=== PATIENT | female | born 1955 | race Caucasian/White ===

== ENCOUNTER 2021-10-15 08:37 | Emergency (ER) | payer BC, OTHER ==
[~2021-10-15] VITALS: Ht 165.1 cm; Wt 70.3 kg
[~2021-10-15 08:37] MED LIST: AMLO-489 PO; BENA10TA84 PO; NAPR-223 PO
[2021-10-15] MEDS ORDERED: METOPROLOL TARTRATE 50 MG TAB PO ONE (09:30)
[2021-10-15] MEDS ORDERED: PRED20TA2 PO (10:16)
[2021-10-15] MEDS ORDERED: ACYC-163 PO (10:16)
[2021-10-15] MEDS ORDERED: PROPDRO5 OP (10:16)
[2021-10-15 10:29] VITALS: BP 180/98
== END 2021-10-15 10:42 | disposition home or self-care (01) ==
LOC: ER 08:37
DX: G51.0 Bell's palsy (principal); I10 Essential (primary) hypertension; E78.5 Hyperlipidemia, unspecified; Z79.899 Other long term (current) drug therapy
CPT/HCPCS: 93005

== ENCOUNTER 2024-07-17 19:23 | Inpatient (IN) | payer BC, OTHER ==
[~2024-07-17] VITALS: Ht 165.1 cm; Wt 83.2 kg
[~2024-07-17 19:23] MED LIST changes: +ACYC1TAB2 PO; -AMLO-489 PO; +AMLO1TAB22 PO; +PRED20TA2 PO; +PROPDRO5 OP
[2024-07-17] MEDS: ACETAMINOPHEN 325 MG TAB PO ONE (20:35)
[2024-07-17 20:56] LABS: Basophils # (auto) 0 10 ^3/uL (0-0.2); Basophils % (auto) 0.4 % (0.0-2.0); Eosinophils # (auto) 0 10 ^3/uL (0-0.8); Hematocrit 46.3 % (36.0-46.0); Lymphocytes # (auto) 1.1 10 ^3/uL (0.4-5.4); Lymphocytes % (auto) 11.7 % (10.0-50.0); Mean Corpuscular Hemoglobin 33.6 pg (28.0-32.0); Mean Corpuscular Hgb Conc. 34.5 g/dL (32.0-36.0); Mean Corpuscular Volume 97.6 fL (80.0-100.0); Monocytes # (auto) 1.2 10 ^3/uL (0-1.3); Neutrophils # (auto) 7.3 10 ^3/uL (1.6-8.6); Neutrophils % (auto) 75.9 % (37.0-80.0); Platelet Count (auto) 287 10^3/uL (140-450); Red Blood Cells 4.74 10^6/uL (4.0-5.20); Red Cell Distribution Width 14.1 % (11.8-14.3); White Blood Cell 9.7 10^3/uL (4.4-10.8)
--- NOTE | 2024-07-17 21:03 | ED.PDOC ---
History of Present Illness HPI Comments 69 y/o F, with a Hx of AFIB, CHF, HLD, HTN, and obesity, is [id number] daughter for c/o confusion, difficulty ambulating, mild headache, and poor appetite s/p mechanical fall and injury, today. Per daughter, patient developed aforementioned symptoms after sustaining a fall w/o head injury or lost of consc iousness after leaving her dentist's office appointment, today, at 1100. Patient was stated to have been given Lidocaine at appointment. She is reported also to have been sick with a headache, cough, congestion, and shortness of breath for the past few days prior to fall in addition to being on Xarelto. Patient has no reported chest pain, shortness of breath, weakens, numbness, tingling sensation, dizziness, vision or speech changes, or other associated symptoms or modifiers at this time. Chief Complaint: Fall Injury Time Seen by MD: 20:40 Primary Care Provider: DR ADAN Reviewed Notes: Nurses Notes, Medications, Allergies Allergies: Coded Allergies: NO KNOWN ALLERGIES (Unverified , 04/25/13) Home Meds Active Scripts Propylene Glycol-Glycerin (Artificial Tears) Tears Etienne, 1 DROP OP Hourly for 7 Days, #1 UNIT Prov:KISHOR DELGADILLO MD 10/15/21 Acyclovir (Acyclovir) 400 Mg Tab, 400 MG PO 5XD for 7 Days, #35 TAB Prov:KISHOR DELGADILLO MD 10/15/21 Prednisone (Prednisone) 20 Mg Tab, 60 MG PO DAILY for 7 Days, #21 TAB Prov:KISHOR DELGADILLO MD 10/15/21 Reported Medications Rivaroxaban (Xarelto Tablet) 15 Mg Tb, 1 TAB PO DAILY 07/18/24 Gabapentin (Gabapentin) 300 Mg Cap, 1 CAP PO TID 07/18/24 Hydrochlorothiazide (Hydrochlorothiazide) 12.5 Mg Cap, 1 CAP PO DAILY 07/18/24 Metoprolol Tartrate (Metoprolol Tartrate) 100 Mg Tab, 1 TAB PO BID 07/18/24 Naproxen (Naprosyn) 500 Mg Tab, 500 MG PO PRN, TAB 04/14/15 Amlodipine Besylate (Amlodipine Besylate) 5 Mg Tab, 5 MG PO DAILY, TAB 04/14/15 Benazepril Hcl (Lotensin) 10 Mg Tab, 10 MG PO DAILY, TAB 04/14/15 Information Source: Relative (Child) Mode of Arrival: Wheelchair Severity: Moderate Timing: Hours Duration: Since onset Prehospital treatment: None Review of Systems: As stated in HPI Vital Signs Vital Signs Date Time Temp Pulse Resp B/P (MAP) Pulse Ox O2 Delivery O2 Flow Rate FiO2 07/18/24 02:00 102 20 127/81 (96) 98 07/17/24 22:36 98.4 98.4 07/17/24 22:31 Nasal Cannula* 2 28 Physical Exam General: Awake, alert and oriented. No acute distress. Skin: Skin in warm, dry and intact. Appropriate color for ethnicity. Nailbeds pi nk with no cyanosis. HEENT: The head is normocephalic and atraumatic. Conjunctivae are clear without exudates or hemorrhage. Sclera is non-icteric. EOM are intact. No signs of nystagmus. Eyelids are normal in appearance without swelling or lesions. Oral m ucosa is pink and moist Neck: The neck is supple with normal range of motion. No JVD. Cardiac: Rapid rate, regular rhythm. No murmurs, gallops, or rubs are auscultated. Respiratory: No signs of respiratory distress. Lung sounds are clear in all lobes bilaterally without rales, ronchi, or wheezes. Abdominal: Abdomen is soft, non-tender without distention. Bowel sounds are pre sent and normoactive in all four quadrants. Extremities: Upper and lower extremities are atraumatic in appearance without deformity or edema. Neurological: The patient is awake, alert and oriented to person, place, and time with normal speech. Speech is clear. There is no facial asymmetry. Psychiatric: Appropriate mood and affect. Good judgement and insight. No visual or auditory hallucinations. Past Medical History PAST MEDICAL HISTORY: AFIB, CHF, High Lipids, HTN Past Medical History (Other): obesity Surgical History: Denies all surgeries BINDERY OPERATOR History: No Pertinent BINDERY OPERATOR History Family History Family History: No family hx of Cancer Social History Smoker: Non-Smoker Alcohol: Denies ETOH Use Drugs: Denies Drug Use Lives In: Home Was a procedure done? Was a procedure done?: No EKG EKG : Pulse Rate (adult): 137 [place]: Normal Cardiac Rhythm: Afib Block: None Hypertrophy: None ST: Normal Differential Dx Considerations may include: encephalopathy, fracture, contusion, bruising, musculoskeletal pain, sprain, viral syndrome X-Ray, Labs, Meds, VS Vital Signs Date Time Temp Pulse Resp B/P (MAP) Pulse Ox O2 Delivery O2 Flow Rate FiO2 07/18/24 02:00 102 20 127/81 (96) 98 07/18/24 00:00 102 07/18/24 00:00 102 19 111/76 (88) 98 07/17/24 22:36 98.4 135 14 125/61 (82) 93 98.4 07/17/24 22:31 92 Nasal Cannula* 2 28 07/17/24 22:18 141 14 91/61 (71) 93 07/17/24 21:11 136 16 110/74 (86) 95 07/17/24 21:03 137 07/17/24 20:35 101.4 07/17/24 20:12 137 07/17/24 20:00 126 07/17/24 19:25 101.4 130 20 90/73 (79) 93 Lab Test 07/17/24 22:49 07/17/24 20:58 07/17/24 20:46 07/17/24 20:33 Range/Units Group A Streptococcus Rapid Negative Influenza Type A Antigen Negative Negative Influenza Type B Antigen Negative Negative SARS-CoV-2 Antigen (Rapid) Negative NEGATIVE Sodium Level 138 136-145 mmol/L Potassium Level 3.5 3.5-5.1 mmol/L Chloride Level 98 98-107 mmol/L Carbon Dioxide Level 28 20-31 mmol/L Anion Gap 12 5-15 Blood Urea Nitrogen 19 9-23 mg/dL Creatinine 1.50 H 0.550-1.02 mg/dL Glomerular Filtration Rate Calc 37 >90 mL/min BUN/Creatinine Ratio 12.7 10.0-20.0 Serum Glucose 155 H 74-106 mg/dL Calcium Level 10.8 H 8.7-10.4 mg/dL Total Bilirubin 0.5 0.2-1.0 mg/dL Aspartate Amino Transferase (AST) 74 H 13-40 U/L Alanine Aminotransferase (ALT) 40 7-40 U/L Alkaline Phosphatase 88 46-116 U/L Total Protein 8.0 5.7-8.2 g/dL Albumin 4.9 H 3.2-4.8 g/dL White Blood Count 9.7 4.4-10.8 10^3/uL Red Blood Count 4.74 4.0-5.20 10^6/uL Hemoglobin 16.0 12.2-16.2 g/dL Hematocrit 46.3 H 36.0-46.0 % Mean Corpuscular Volume 97.6 80.0-100.0 fL Mean Corpuscular Hemoglobin 33.6 H 28.0-32.0 pg Mean Corpuscular Hemoglobin Concent 34.5 32.0-36.0 g/dL Red Cell Distribution Width 14.1 11.8-14.3 % Platelet Count 287 140-450 10^3/uL Mean Platelet Volume 7.4 6.9-10.8 fL Neutrophils (%) (Auto) 75.9 37.0-80.0 % Lymphocytes (%) (Auto) 11.7 10.0-50.0 % Monocytes (%) (Auto) 12.0 0.0-12.0 % Eosinophils (%) (Auto) 0.0 0.0-7.0 % Basophils (%) (Auto) 0.4 0.0-2.0 % Neutrophils # (Auto) 7.3 1.6-8.6 10 ^3/uL Lymphocytes # (Auto) 1.1 0.4-5.4 10 ^3/uL Monocytes # (Auto) 1.2 0-1.3 10 ^3/uL Eosinophils # (Auto) 0 0-0.8 10 ^3/uL Basophils # (Auto) 0 0-0.2 10 ^3/uL Nucleated Red Blood Cells 0.0 % Prothrombin Time 13.3 H 9.3-11.8 sec Prothrombin Time INR 1.28 H 0.9-1.15 Magnesium Level 1.7 1.6-2.6 mg/dL C-Reactive Protein High Sensitivity 0.92 <1.0 mg/dL B-Type Natriuretic Peptide 245.32 0-100 pg/mL Current Medications Medications (Trade) Dose Ordered Sig/Hillary Route Start Time Stop Time Status Last Admin Sodium Chloride 250 ml @ 1,000 mls/hr Q15M ONCE IV 07/17/24 20:30 07/17/24 20:44 DC 07/17/24 22:27 Diltiazem HCl (Cardizem Injection) 15 mg ONCE ONCE IV 07/17/24 20:30 07/17/24 20:31 DC 07/17/24 22:27 Acetaminophen (Tylenol Tablet) 650 mg ONCE ONCE PO 07/17/24 20:30 07/17/24 20:31 DC 07/17/24 20:35 Time of 1ST Reevaluation: 21:10 Reevaluation 1ST: Unchanged Patient Education/Counseling: Other (patient is confused ) Family Education/Counseling: Diagnosis, Treatment Departure 1 Departure Time of Disposition: : Impression: Primary Impression: Acute kidney injury Additional Impressions: Atrial fibrillation with RVR Confusion Disposition: ADMITTED INPATIENT Condition: Stable Comments 69-year-old female with confusion, acute kidney injury, AFib with RVR. Patient admitted for further treatment, evaluation and monitoring. Extensive evaluation was performed in attempt to identify or rule out: (See differential diagnosis section) The following tests were ordered, and results were reviewed by me: (See diagnostic results section) The following test were independently interpreted by me: EKG, chest x-ray (no acute disease) I reviewed and agreed with the following test results read by other providers: N/A I reviewed the following notes from the pt's past medical encounters: (None available at this time) Additional information was gathered from interviewing the following independent historians: Patient's daughter Discussion of management or test interpretation with external physician/other qualified health rn care manager: N/A Addressed one or more chronic illnesses with severe exacerbation, progression, or side effects of treatment: Chronic kidney disease with acute kidney injury, an acute or chronic illness that poses a threat to life or bodily function: AFib with RVR, Decision regarding hospitalization or escalation of hospital level of care: Risk and benefits of admission for further treatment of patient's condition was considered. Due to patient's current clinical condition, high risk of decline and poor outcome if discharged and need for further inpatient management and monitoring, patient will be admitted to the hospital. Drug therapy requiring intensive monitoring for toxicity: IV diltiazem Critical Care Note Critical Care Time?: No Stability Stability form required: No Heart Score Heart Score: Heart Score Response (Comments) Value History N/A 0 EKG N/A 0 Age N/A 0 Risk Factors N/A 0 Troponin N/A 0 Total 0 I personally scribed for MAHENDRA BOWERS MD ([email or web address]) on 07/17/24 at 21:03. Electronically submitted by Saulo Thrasher ([email or web address]). MAHENDRA BOWERS MD Jul 17, 2024 21:03
[2024-07-17 21:10] LABS: INR 1.28 (0.9-1.15); Prothrombin Time 13.3 sec (9.3-11.8)
[2024-07-17 21:15] LABS: Magnesium 1.7 mg/dL (1.6-2.6)
[2024-07-17 21:24] LABS: CRP High Sensitivity 0.92 mg/dL (<1.0)
--- NOTE | 2024-07-17 21:34 | DVH ---
CHEST RADIOGRAPH Indication: suspected sepsis Technique: Single frontal view of the chest was obtained Comparison: None FINDINGS: Lines and Tubes: None Lungs: Clear Pleura: No effusion. No pneumothorax. Cardiomediastinal contours: Unremarkable Bones: Unremarkable IMPRESSION: 1. Clear lungs.
[2024-07-17 21:37] LABS: COVID19 ANTIGEN SOFIA FIA NEGATIVE (NEGATIVE); Rapid Influenza A Negative (Negative); Rapid Influenza B Negative (Negative)
[2024-07-17] MEDS: SODIUM CHLORIDE 0.9% 250 ML IV ONE (22:27)
[2024-07-17] MEDS: dilTIAZem 25 MG/5 ML VIAL IV ONE (22:27)
[2024-07-17 22:31] VITALS: O2SAT 92
[2024-07-17 23:14] LABS: Alanine Aminotransferase 40 U/L (7-40); Alkaline Phosphatase 88 U/L (46-116); Anion Gap 12 (5-15); BUN/Creatinine Ratio 12.7 (10.0-20.0); Bilirubin, Total 0.5 mg/dL (0.2-1.0); Blood Urea Nitrogen 19 mg/dL (9-23); Carbon Dioxide 28 mmol/L (20-31); Chloride 98 mmol/L (98-107); Potassium 3.5 mmol/L (3.5-5.1); Sodium 138 mmol/L (136-145)
[2024-07-17 23:17] LABS: Albumin 4.9 g/dL (3.2-4.8); Aspartate Aminotransferase 74 U/L (13-40); Calcium 10.8 mg/dL (8.7-10.4); Glucose 155 mg/dL (74-106)
[2024-07-17 23:38] LABS: Rapid Strep A Screen-Throat Negative
--- NOTE | 2024-07-18 00:51 | ECG ---
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
--- NOTE | 2024-07-18 03:29 | DVHHPRES ---
History of Present Illness Resident Creating Document: RIMA ANDREW RESIDENT History of Present Illness Ms. Pérez, a 69-year-old female with a history of atrial fibrillation, congestive heart failure, hyperlipidemia, hypertension, sleep apnea and obesity was brought in by her daughter due to confusion, difficulty walking, a mild headache, and poor appetite following a mechanical fall earlier today. The fall occurred after a dentist appointment where she received Lidocaine, but she did not hit her head or lose consciousness. She has also been experiencing a headache, cough, congestion, and shortness of breath for the past few days and is on Xarelto. There are no reports of weakness, numbness, t ingling, dizziness, vision, or speech changes. Cardiovascular: AFIB, CHF, HTN Musculoskeletal: Osteoarthritis Family History: None, Other (Noncontributory.) Smoke: No ALCOHOL: none Drugs: None Lives: with Family Domestic Violence: Neg Review of Systems Constitutional: Yes: Weakness, Malaise; No: Fever, Chills, Sweats, Other Eyes: No: Pain, Vision change, Conjunctivae inflammation, Eyelid inflammation, Other, Redness ENT: No: Ear pain, Ear discharge, Nose pain, Nose discharge, Nose congestion, Mouth pain, Mouth swelling, Throat pain, Throat swelling, Other Respiratory: Cough, Dry; No: Shortness of breath, SOB with excertion, Wheezing, Hemoptysis, Pleuritic Pain, Sputum, Wheezing, Other Cardiovascular: No: Chest Pain, Palpitations, Orthopnea, Paroxysmal Noc. Dyspnea, Edema, Lt Headedness, Other Gastrointestinal: No: Nausea, Vomiting, Abdominal Pain, Diarrhea, Constipation, Melena, Hematochezia, Other Genitourinary: No Dysuria, No Frequency, No Incontinence, No Hematuria, No Retention, No Other Musculoskeletal: No: other, neck pain, shoulder pain, arm pain, back pain, hand pain, leg pain, foot pain Skin: No: Rash, Lesions, Jaundice, Bruising, Other Neurological: Weakness, Incoordination, Confusion, Other (Fall); No: Numbness, Change in speech, Seizures Allergies: Coded Allergies: NO KNOWN ALLERGIES (Unverified , 04/25/13) Exam Vital Signs Vital Signs Date Time Temp Pulse Resp B/P (MAP) Pulse Ox O2 Delivery O2 Flow Rate FiO2 07/18/24 02:00 102 20 127/81 (96) 98 07/17/24 22:36 98.4 98.4 07/17/24 22:31 Nasal Cannula* 2 28 General Appearance: Alert, Oriented X3, Cooperative, No acute distress, mild distress, moderate distress HEENT: Atraumatic, PERRLA, EOMI, Mucous membr. moist/pink Respiratory: Clear to auscultation, Normal air movement Cardiovascular: Regular rate, Normal S1, Normal S2, No murmurs Abdominal: Normal bowel sounds, Soft, No tenderness, No hepatospenomegaly Extremities: No clubbing, No cyanosis, No edema, Normal pulses, No tenderness/swelling Skin: No rashes, No breakdown, No significant lesion Neuro: Normal speech, Strength at 5/5 X4 ext, Normal tone, Sensation intact, Cranial nerves 3-12 NL, Reflexes 2+, Other (Deferred as patient is fall precaution,) Psych/Mental Status: Mental status NL, Mood NL Labs/Xrays Labs Test 07/17/24 22:49 07/17/24 20:58 07/17/24 20:46 07/17/24 20:33 Range/Units Group A Streptococcus Rapid Negative Influenza Type A Antigen Negative Negative Influenza Type B Antigen Negative Negative SARS-CoV-2 Antigen (Rapid) Negative NEGATIVE Sodium Level 138 136-145 mmol/L Potassium Level 3.5 3.5-5.1 mmol/L Chloride Level 98 98-107 mmol/L Carbon Dioxide Level 28 20-31 mmol/L Anion Gap 12 5-15 Blood Urea Nitrogen 19 9-23 mg/dL Creatinine 1.50 H 0.550-1.02 mg/dL Glomerular Filtration Rate Calc 37 >90 mL/min BUN/Creatinine Ratio 12.7 10.0-20.0 Serum Glucose 155 H 74-106 mg/dL Calcium Level 10.8 H 8.7-10.4 mg/dL Total Bilirubin 0.5 0.2-1.0 mg/dL Aspartate Amino Transferase (AST) 74 H 13-40 U/L Alanine Aminotransferase (ALT) 40 7-40 U/L Alkaline Phosphatase 88 46-116 U/L Total Protein 8.0 5.7-8.2 g/dL Albumin 4.9 H 3.2-4.8 g/dL White Blood Count 9.7 4.4-10.8 10^3/uL Red Blood Count 4.74 4.0-5.20 10^6/uL Hemoglobin 16.0 12.2-16.2 g/dL Hematocrit 46.3 H 36.0-46.0 % Mean Corpuscular Volume 97.6 80.0-100.0 fL Mean Corpuscular Hemoglobin 33.6 H 28.0-32.0 pg Mean Corpuscular Hemoglobin Concent 34.5 32.0-36.0 g/dL Red Cell Distribution Width 14.1 11.8-14.3 % Platelet Count 287 140-450 10^3/uL Mean Platelet Volume 7.4 6.9-10.8 fL Neutrophils (%) (Auto) 75.9 37.0-80.0 % Lymphocytes (%) (Auto) 11.7 10.0-50.0 % Monocytes (%) (Auto) 12.0 0.0-12.0 % Eosinophils (%) (Auto) 0.0 0.0-7.0 % Basophils (%) (Auto) 0.4 0.0-2.0 % Neutrophils # (Auto) 7.3 1.6-8.6 10 ^3/uL Lymphocytes # (Auto) 1.1 0.4-5.4 10 ^3/uL Monocytes # (Auto) 1.2 0-1.3 10 ^3/uL Eosinophils # (Auto) 0 0-0.8 10 ^3/uL Basophils # (Auto) 0 0-0.2 10 ^3/uL Nucleated Red Blood Cells 0.0 % Prothrombin Time 13.3 H 9.3-11.8 sec Prothrombin Time INR 1.28 H 0.9-1.15 Magnesium Level 1.7 1.6-2.6 mg/dL C-Reactive Protein High Sensitivity 0.92 <1.0 mg/dL B-Type Natriuretic Peptide 245.32 0-100 pg/mL [address] [address] Ph: [phone] DIAGNOSTIC IMAGING Diagnostic Imaging Report : [id number] Signed PATIENT: KATARZYNA PÉREZ ACCT: [id number] UNIT: [id number] : 1955 LOC: [facility] ROOM / BED: [address] [place] [address] AGE / SEX: 69 / F ADM STATUS: ADM IN SERVICE 0336 ORDERING PHYSICIAN: RIMA ANDREW RESIDENT PROCEDURE(s): HWOCT - HEAD WITHOUT CONTRAST REASON: rule out stroke ORDER NUMBER(s): [id number], ACCESSION NUMBER(s): [id number] EXAM: CT HEAD WITHOUT CONTRAST INDICATION: rule out stroke TECHNIQUE: CT of the head without intravenous contrast. Radiation Dose : 1. Head: CT Dose: CTDI volume is 58 mGy. Dose-length product is 1027 mGy*cm The dose indicators for CT are the volume Computed Tomography (CT) Dose Index (CTDIvol) and the Dose Length Product (DLP), and are measured in units of mGy and mGy-cm, respectively. These indicators are not patient dose, but values generated from the CT scanner acquisition factors. The report includes radiation exposure data for exposures received during this examination. COMPARISON: None FINDINGS: There is no evidence of acute intracranial hemorrhage, extra-axial collection, mass effect, midline shift, herniation or hydrocephalus. The ventricles, sulci and cisterns are age appropriate. The wells-white differentiation is intact. Patchy periventricular and subcortical white matter hypoattenuation is nonspecific but may be related to small vessel ischemic disease. This is most prominent in the right frontal lobe. The visualized paranasal sinuses and mastoid air cells are clear. The surrounding soft tissues and osseous structures are unremarkable. IMPRESSION: No acute intracranial abnormality. MRI can be obtained to further evaluate if there is high clinical suspicion for infarct. Radiation optimization: All CT scans at this facility use at least one of these dose optimization techniques: automated exposure control mA and/or kV adjustment per patient size (includes targeted exams where dose is matched to clinical indication) or iterative reconstruction. ATED BY: STAR SIMPSON MD DICTATED DATE/TIME: 07/18/24436 SIGNED BY: STAR SIMPSON MD SIGNED DATE/TIME: 07/18/24436 CC: [place] [id number] Ph: [phone] DIAGNOSTIC IMAGING Diagnostic Imaging Report : [id number] Signed PATIENT: KATARZYNA PÉREZ ACCT: [id number] UNIT: [id number] : 1955 LOC: ER ROOM / BED: / AGE / SEX: 69 / F ADM STATUS: REG ER SERVICE 15 ORDERING PHYSICIAN: MAHENDRA BOWERS MD PROCEDURE(s): CXR1 - CHEST XRAY 1 VIEW REASON: suspected sepsis ORDER NUMBER(s): [id number], ACCESSION NUMBER(s): [id number] CHEST RADIOGRAPH Indication: suspected sepsis Technique: Single frontal view of the chest was obtained Comparison: None FINDINGS: Lines and Tubes: None Lungs: Clear Pleura: No effusion. No pneumothorax. Cardiomediastinal contours: Unremarkable Bones: Unremarkable IMPRESSION: 1. Clear lungs. ATED BY: RHONA CHRISTIANSEN DO DICTATED DATE/TIME: 07/17/242131 SIGNED BY: RHONA CHRISTIANSEN DO SIGNED DATE/TIME: 07/17/242131 CC: EKG Name: KATARZYNA PÉREZ Acct: [id number] [place] [address] ELECTROCARDIOGRAM REPORT PATIENT: KATARZYNA PÉREZ ACCT: [id number] : 1955 LOC: ER ROOM / BED: / AGE / SEX: 69 / F ADM STATUS: REG ER SERVICE 24 UNIT: [id number] ORDERING PHYSICIAN: MAHENDRA BOWERS MD PROCEDURE(s): EKG - ELECTROCARDIGRAM ORDER NUMBER(s): [id number], ACCESSION NUMBER(s): [id number] [facility] Test Date: 2024-07-17 Test Time: 20:12:21 Pat Name: KATARZYNA PÉREZ Department: ER 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 DICTATED BY: DICTATED DATE/TIME:07/17/242011 ELECTRONICALLY SIGNED BY: ELECTRONICALLY CO-SIGNED BY: Assessment/Plan Assessment/Plan Assessments: a 69-year-old with multiple health issues, was brought in for confusion and difficulty walking after a fall today, following a dentist appointment where she received Lidocaine. Plan: #1 Possible syncope: History is not clear it could be due to syncope, pain and lidocaine could be pointing towards vasovagal, but to rule out cardiac /more serious causes of syncope echo, UDS, orthostatic vitals and further labs to follow. No ST-T acute changes noted. BNP in 200s, troponin trending in process. #2 acute Confusion: Broad differentials including concussion injury, stroke/TIA, metabolic/toxic encephalopathy among others. CBC and chemistry unremarkable. BG WNL, UDS unremarkable, plasma serum alcohol WNL. #3 Acute kidney injury likely due to VMN: Baseline creatinine around 1.06, elevated with 1.50 likely due to prerenal causes. IV fluid to continue. Elevated CK 322. CK to follow. Avoid nephrotoxics. check I&O closely. #4 Known Atrial fibrillation with RVR: Noted at 12 lead EKG, telemetry with heart rate in the 130s AFib RVR in known patient. At home patient takes metoprolol tartrate 100 mg b.i.d., Xarelto 15 mg daily. status post IV Cardizem, metoprolol succinate 50 mg b.i.d. for event coverage and restarted patient's home Xarelto. No noncompliance noted. target heart rate below 110 at moderate exercise and below 80 at rest as per RACE II trial. keep magnesium above 2, potassium above 4. Magnesium. #5 acute stroke /TIA to rule out: Noncontrast head CT unremarkable. No focal neurological deficits noted, Carotid duplex Doppler, echo pending. If high suspicion of neurological cause suspected consider MRI tomorrow. #6 Possible mechanical fall: The fall could be due to mechanical / strength related issues PT evaluation in the a.m.. Fall precautions In place. B12 WNL, no cerebral/cerebellar incoordination noted. #7 Possible hyperthyroidism: TSH 0.36, follow up free T3-T4. Treat as needed. #8 UTI: Leukocyte esterase 3+, malaise, turbid urine, urine culture blood culture to follow started the patient on IV ceftriaxone. #9 community-acquired pneumonia Gram-positive/Gram-negative: Along with viral influenza, COVID, strep pneumonia ruled out, CXR unremarkable patient's recent cough could be due to viral URI. Speech pathology eval by nursing staff to rule out any dysphagia. #10 Sleep apnea: Known sleep apnea CPAP / BiPAP at night during sleep time. RT input appreciated. #11 Grade 1 obesity: BMI 30.8 weight loss, lifestyle modification recommended. #12 Known essential hypertension: Home patient takes amlodipine 5 mg, hydro chlorothiazide 12.5 daily. Blood pressure WNL, target blood pressure 140/90 or below. At this time holding antihypertensives. 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 #14 Chronic Congestive heart failure: Systolic versus diastolic versus mixed. TTE pending. IV 20 Lasix mildly elevated BNP. #15 Osteoarthritis/back pain: Gabapentin 300 mg p.o. t.i.d. holding given recent confusion, naproxen 500 mg p.r.n., as needed pain medication with Tylenol. #16: Diet: When speech evaluation clear patient can be started on cardiac diet with 2 g salt restriction. PUD prophylaxis: protonix 40mg Daily. DVT prophylaxis: Patient on Xarelto 15 mg daily restarted. Barriers to discharge: Medical diagnosis and management in progress. Patient lives with family. Independent for ADL at baseline with patient family help. PT consulted, as needed sw help. PCP: DR ADAN Case discussed with Dr. Thurman. Code Status: Full Code. Discussion needed total 21 minutes bedside. Plan discussed with: Patient, Daughter (Primary team, RN.), Other My Orders Orders - RIMA ANDREW RESIDENT Procedure Category Date Status Time Admit ADMIT 07/18/24 Verified 03:26 Nitroglycerin [facility] 07/18/24 Verified Sublingual (Ntrostat 03:30 Morphine Sulfate [facility] 07/18/24 Verified Injection 03:30 Oxygen By Nasal RT 07/18/24 Verified Cannula 03:26 Stat Ekg For Chest [facility] 07/18/24 Verified Pain 03:26 Notify Of Changes [facility] 07/18/24 Verified From Base 03:26 Eviction Specialist For [facility] 07/18/24 Verified 24 Hours 03:26 Emergency Dysrhythmia [facility] 07/18/24 Verified Protocol 03:26 Rhythm Strips Once [facility] 07/18/24 Verified Every Shift 03:26 Date of Service: Jul 18, 2024 Billing Provider: NATALY THURMAN MD Common Visit Codes: 80097-BGSYPTL INP/OBS CARE (HIGH) Secondary Visit Codes: 51090-[id number] CARE PLAN 30 MINUTES RIMA ANDREW Jul 18, 2024 03:29 NATALY THURMAN MD Jul 21, 2024 18:23
[2024-07-18] MEDS ORDERED: NITROGLYCERIN 0.4 MG SL TAB SL PRN (03:30)
[2024-07-18] MEDS ORDERED: MORPHINE SULFATE INJ 2 MG/ml SYRG IV PRN (03:30)
[2024-07-18] MEDS ORDERED: RIV15T PO (03:44)
[2024-07-18] MEDS ORDERED: GABA-1250 PO (03:44)
[2024-07-18] MEDS ORDERED: HYDR12.59 PO (03:44)
[2024-07-18] MEDS ORDERED: METO-159 PO (03:44)
[2024-07-18 04:32] LABS: Urine Bacteria MANY /hpf (None Seen); Urine Blood Negative /uL (Negative); Urine Clarity Turbid (Clear); Urine Color Yellow (Yellow); Urine Hyaline Cast FEW /lpf (0 - 2); Urine Mucus FEW (None Seen); Urine Protein, UAD 1+ (Negative); Urine Specific Gravity 1.021 (1.001-1.035); Urine Urobilinogen Normal (Negative); Urine WBC 224 /hpf (0 - 5); Urine pH 5.5 (5.0-9.0)
--- NOTE | 2024-07-18 04:41 | DVH ---
EXAM: CT HEAD WITHOUT CONTRAST INDICATION: rule out stroke TECHNIQUE: CT of the head without intravenous contrast. Radiation Dose : 1. Head: CT Dose: CTDI volume is 58 mGy. Dose-length product is 1027 mGy*cm The dose indicators for CT are the volume Computed Tomography (CT) Dose Index (CTDIvol) and the Dose Length Product (DLP), and are measured in units of mGy and mGy-cm, respectively. These indicators are not patient dose, but values generated from the CT scanner acquisition factors. The report includes radiation exposure data for exposures received during this examination. COMPARISON: None FINDINGS: There is no evidence of acute intracranial hemorrhage, extra-axial collection, mass effect, midline s hift, herniation or hydrocephalus. The ventricles, sulci and cisterns are age appropriate. The wells-white differentiation is intact. Patchy periventricular and subcortical white matter hypoattenuation is nonspecific but may be related to small vessel ischemic disease. This is most prominent in the right frontal lobe. The visualized paranasal sinuses and mastoid air cells are clear. The surrounding soft tissues and osseous structures are unremarkable. IMPRESSION: No acute intracranial abnormality. MRI can be obtained to further evaluate if there is high clinical suspicion for infarct. Radiation optimization: All CT scans at this facility use at least one of these dose optimization aydee hniques: automated exposure control mA and/or kV adjustment per patient size (includes targeted exam s where dose is matched to clinical indication) or iterative reconstruction.
[2024-07-18 04:50] LABS: Amphetamine Screen, Urine Neg (NEGATIVE)
[2024-07-18 04:51] LABS: Barbiturate Scree,Urine Neg (NEGATIVE); Benzodiazephine Screen, Urine Neg (NEGATIVE); Cannabinoid Screen, Urine Neg (NEGATIVE); Cocaine Screen, Urine Neg (NEGATIVE); Opiate Scree,Urine Neg (NEGATIVE); Phencyclidine Screen, Urine Neg (NEGATIVE)
[2024-07-18] MEDS ORDERED: ARTIFICIAL TEARS 15ml EACHEYE PRN (06:30)
[2024-07-18] MEDS: MAGNESIUM SULFATE 1GM/100ML 100 ML IV ONE (06:53)
[2024-07-18] MEDS: LACTATED RINGER'S 1,000 ML IV SCH (06:53)
[2024-07-18] MEDS: FUROSEMIDE 20 MG/2 ML VIAL IV ONE (06:58)
[2024-07-18 07:05] LABS: Free T3 2.72 pg/mL (2.3-4.2); Free T4 (Free Thyroxine) 1.06 ng/dL (0.89-1.76)
[2024-07-18 07:30] VITALS: PULSE 174; RESP 20; O2SAT 95
[2024-07-18] MEDS: METOPROLOL TARTRATE 1MG/1ML-5ML VIAL IV SCH (08:22)
[2024-07-18] MEDS: ACETAMINOPHEN 325 MG TAB PO PRN (08:22)
[2024-07-18] MEDS: dilTIAZem 125mg/125ml BAG KIT 125 ML IV SCH (08:45)
[2024-07-18] MEDS: dilTIAZem 25 MG/5 ML VIAL IV ONE (08:45)
[2024-07-18 09:01] VITALS: BP 161/83; PULSE 170; RESP 20; TEMP 101.3; O2SAT 97
--- NOTE | 2024-07-18 09:13 | DVH ---
Carotid Duplex Date: 07/18/2024 08:34 AM Clinical History: syncopy rule out. Comparison: Same-day CT brain Technique: Duplex Doppler evaluation of the extracranial carotid and vertebral arteries including color Doppler and spectral/pulsed waveform analysis was performed. Findings: RIGHT SIDE: The peak systolic velocities are 78 cm/s in the distal CCA and 44 cm/s in the proximal ICA.The ICA/CC A ratio is less than 1. The external carotid artery is patent with peak systolic velocity of 94 cm/s proximally. There is appropriate antegrade flow in the right vertebral artery. LEFT SIDE: Calcified plaque at the left carotid bulb and proximal left ICA causing less than 50% stenosis by gra yscale measurement. The peak systolic velocities are 60 cm/s in the distal CCA and 62 cm/s in the proximal ICA.. The ICA /CCA ratio is normal. The external carotid artery is patent with peak systolic velocity of 85 cm/s proximally. There is appropriate antegrade flow in the left vertebral artery. IMPRESSION: 1. No hemodynamically significant stenosis noted in the right carotid system. 2. No hemodynamically significant stenosis noted in the left carotid system. 3. Reference: Radiology 2003; [id number] HS:Y
[2024-07-18] MEDS: cefTRIAXone 1GM/50ML D5W 50 ML IV SCH (10:05)
[2024-07-18 10:41] VITALS: BP 148/83; PULSE 131; RESP 20; TEMP 98.3; O2SAT 96
[2024-07-18] MEDS: PANTOPRAZOLE 40 MG/10 ML VIAL INJ IV SCH (10:42)
[2024-07-18] MEDS: METOPROLOL SUCCINATE XL 50 MG TAB PO SCH (10:43)
--- NOTE | 2024-07-18 11:27 | DVHPN2 ---
Subjective Patient denies any symptoms. Reviewed: Care Plan, H&P, Labs, Medications Changes from previous H/P or p: No Changes General: Per HPI Eyes: No Pain, No Vision change, No Conjunctivae inflammation, No Eyelid inflammation, No Other, No Redness ENT: No Ear pain, No Ear discharge, No Nose pain, No Nose discharge, No Nose congestion, No Mouth pain, No Mouth swelling, No Throat pain, No Throat swelling, No Other Cardiovascular: No Chest Pain, No Palpitations, No Orthopnea, No Paroxysmal Noc. Dyspnea, No Edema, No Lt Headedness, No Other Respiratory: Cough, Dry; No Shortness of breath, No SOB with excertion, No Wheezing, No Hemoptysis, No Pleuritic Pain, No Sputum, No Other Gastrointestinal: No Nausea, No Vomiting, No Abdominal Pain, No Diarrhea, No Constipation, No Melena, No Hematochezia, No Other Genitourinary: No Dysuria, No Frequency, No Incontinence, No Hematuria, No Retention, No Other Musculoskeletal: No other, No neck pain, No shoulder pain, No arm pain, No back pain, No hand pain, No leg pain, No foot pain Skin: No Rash, No Lesions, No Jaundice, No Bruising, No Other Objective Vitals Vital Signs Date Time Temp Pulse Resp B/P (MAP) Pulse Ox O2 Delivery O2 Flow Rate FiO2 07/18/24 10:43 113 121/68 07/18/24 10:41 98.3 20 96 2.0 98.3 07/18/24 07:30 Nasal Cannula* 28 Intake/Output Intake and Output 07/18/24 07:00 Intake Total 250 ml Balance 250 ml Intake IV Total 250 ml General Appearance: Alert, Oriented X3, mild distress HEENT: Atraumatic, PERRLA Lungs: Clear to auscultation, Normal air movement, Other (4 liters/minute) Cardiovascular: Normal S1, Normal S2 Abdomen: Normal bowel sounds Musculoskeletal: Normal sensory function, Normal motor function Neuro: Normal gait, Normal speech Skin: Dry, Intact Psych/Mental Status: Mental status NL, Mood NL Medications Current Medications Medications Dose Ordered Sig/Hillary Route Start Time Stop Time Status Last Admin Dose Admin Nitroglycerin 0.4 mg Q5MINP PRN SL 07/18/24 03:30 Morphine Sulfate 2 mg Q30M PRN IV 07/18/24 03:30 Metoprolol Succinate 50 mg DAILY PO 07/18/24 10:00 07/18/24 10:43 50 MG Rivaroxaban 15 mg QPM PO 07/18/24 18:00 Ceftriaxone Sodium 50 ml @ 100 mls/hr DAILY@09 IV 07/18/24 09:00 07/18/24 10:05 100 MLS/HR Lactated Ringer's 1,000 ml @ 75 mls/hr [id number] IV 07/18/24 06:15 07/18/24 06:53 75 MLS/HR Pantoprazole Sodium 40 mg DAILY IV 07/18/24 10:00 07/18/24 10:42 40 MG Artificial Tears 1 drop Q2HP PRN EACHEYE 07/18/24 06:30 Acetaminophen 650 mg Q4HP PRN PO 07/18/24 07:30 07/18/24 08:22 650 MG Diltiazem HCl 125 ml @ 5 mls/hr Q24H IV 07/18/24 08:45 07/18/24 08:45 5 MLS/HR Laboratory Results Laboratory Tests 07/17/24 20:33 07/17/24 20:46 Chemistry Test 07/17/24 20:33 07/17/24 20:46 Magnesium Level 1.7 mg/dL (1.6-2.6) Albumin 4.9 g/dL (3.2-4.8) H Calcium Level 10.8 mg/dL (8.7-10.4) H Total Protein 8.0 g/dL (5.7-8.2) Coagulation Test 07/17/24 20:33 07/18/24 06:34 Prothrombin Time 13.3 sec (9.3-11.8) H Prothrombin Time INR 1.28 (0.9-1.15) H D-Dimer, Quantitative 0.36 mg/L FEU (0.0-0.49) Cardiac Markers Test 07/17/24 20:33 B-Type Natriuretic Peptide 245.32 pg/mL (0-100) LFT Test 07/17/24 20:46 Alanine Aminotransferase (ALT) 40 U/L (7-40) Alkaline Phosphatase 88 U/L (46-116) Aspartate Amino Transferase (AST) 74 U/L (13-40) H Total Bilirubin 0.5 mg/dL (0.2-1.0) HgA1c, TSH Test 07/18/24 04:20 Thyroid Stimulating Hormone (TSH) 0.36 uIU/mL (0.55-4.78) L Urinalysis Test 07/18/24 04:16 Urine Color Yellow (Yellow) Urine Clarity Turbid (Clear) H Urine pH 5.5 (5.0-9.0) Urine Specific [place] 1.021 (1.001-1.035) Urine Protein 1+ (Negative) H Urine Ketones Negative (Negative) Urine Blood Negative /uL (Negative) Urine Nitrite 2+ (Negative) H Urine Bilirubin Negative (Negative) Urine Urobilinogen Normal mg/dL (Negative) Urine Leukocyte Esterase 3+ /uL (Negative) Urine RBC 4 /hpf (0 - 4) Urine WBC 224 /hpf (0 - 5) Urine Squamous Epithelial Cells Few /hpf (<5) Urine Bacteria Many /hpf (None Seen) H Urine Hyaline Casts Few /lpf (0 - 2) Urine Mucus Few (None Seen) Urine Glucose Normal mg/dL (Normal) Blood Gas Results Test 07/18/24 06:41 FiO2 % 21.0 Labs and/or images reviewed: Labs reviewed by me, Image(s) reviewed by me Assessment/Plan Assessment/Plan Impression: -acute hypoxic respiratory failure -atrial fibrillation with rapid ventricular -dyslipidemia -primary hypertension -febrile, rule out sepsis -obesity -mechanical fall -complicated cystitis Plan: -transferred to the [facility] status. -continue Cardizem drip -continue statin -continue beta blockers -continue antibiotic therapy with doxycycline and Rocephin -gentle IV hydration -sexton culture -repeat labs and chest x-ray in a.m. Critical care time spent with patient discussing and formulating plan of care: 40 minutes. This does not include time spent performing procedures. This medical document was created using an electronic medical record system with [employer] dictation system. Although this document has been carefully reviewed, there may still be some phonetic and typographical errors. These areas are purely typographical due to imperfections of the software programs, and do not reflect any compromise in the patient's medical care. Plan discussed with: Patient, Daughter, Other (RN) My Orders Orders - KAT CHASE NP Procedure Category Date Status Time Diltiazem 125mg/125ml PHA 07/18/24 In Process Bag Kit (Cardizem) 08:45 Transfer Orders XFER 07/18/24 Transmitted 08:40 Date of Service: Jul 18, 2024 Billing Provider: KAT CHASE NP Common Visit Codes: [id number] CARE 30-74 MIN KAT CHASE NP Jul 18, 2024 11:27
[2024-07-18] MEDS: DOXYCYCLINE 100MG/250ML 250 ML IV SCH (11:30)
--- NOTE | 2024-07-18 13:38 | DVHSR ---
APPROVED REPORT EXAM: LIMITED Two-dimensional and M-mode echocardiogram with Doppler and color Doppler. Blood Pressure: 148/83 mmHg INDICATION FALL? SYNCOPE RISK FACTORS Obesity: Height: 5'5, Weight: 185 DIMENSIONS LVDd3.9 (3.8-5.7cm)LA (2D)4.3 (1.9-4.0cm)Aortic Root3.1 (2.0-3.7cm) LVDs2.7 (2.5-4.0cm)LA (MM) (1.9-4.0cm)Aortic Cusp Exc1.2 (1.5-2.0cm) EF (%) 59.0 (55-70%)Rt. Atrium (1.9-4.0cm)Asc. Aorta3.4 cm IVSd1.0 (0.7-1.1cm)RV (D) (1.8-2.4cm) PWd1.2 (0.7-1.1cm) Mitral Valve MitralMitral Stenosis A wavem/sMV Peak GR.65mmHg E/A ratio0.02D MVAcm2 Aortic Valve Aortic ValveAortic Stenosis V11.19m/Renea Mean GR.7mmHg V21.83m/Renea Peak GR.13mmHg LVOT Diameter1.7 (1.8-2.4cm)Doppler AVA1.48cm2 Tricuspid Valve TR Velocity2.29m/s [id number] Other Information Technically limited study due to body habitus.patient position. Conclusion Normal left ventricular size and dimension. Normal left ventricular systolic function with estimated ejection fraction of 55%. There is a grade 1 diastolic dysfunction. Normal right ventricular size and dimension. Normal right ventricular systolic function. Normal biatrial size and dimension. Normal aortic valve structure and function. Normal mitral valve structure and function. Normal tricuspid valve structure and function. The pulmonary valve is grossly normal. No pericardial effusion.
[2024-07-18] MEDS: SODIUM CHLORIDE 0.9% 1,700 ML IV ONE (17:22)
[2024-07-18] MEDS: RIVAROXABAN 15 MG TAB PO SCH (17:24)
[2024-07-18] MEDS: IBUPROFEN 600 MG TAB PO PRN (17:25)
[2024-07-18 19:00] VITALS: O2SAT 91
--- NOTE | 2024-07-18 19:13 | ECG ---
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
[2024-07-18 19:30] VITALS: PULSE 98; RESP 20; O2SAT 94
[2024-07-18 21:50] LABS: Basophils # (auto) 0 10 ^3/uL (0-0.2); Basophils % (auto) 0.3 % (0.0-2.0); Eosinophils # (auto) 0 10 ^3/uL (0-0.8); Eosinophils % (auto) 0.1 % (0.0-7.0); Hematocrit 39.3 % (36.0-46.0); Hemoglobin 13.2 g/dL (12.2-16.2); Lymphocytes # (auto) 0.7 10 ^3/uL (0.4-5.4); Lymphocytes % (auto) 9.6 % (10.0-50.0); Mean Corpuscular Hemoglobin 33.1 pg (28.0-32.0); Mean Corpuscular Hgb Conc. 33.5 g/dL (32.0-36.0); Mean Corpuscular Volume 98.8 fL (80.0-100.0); Monocytes # (auto) 0.5 10 ^3/uL (0-1.3); Monocytes % (auto) 7.2 % (0.0-12.0); Neutrophils # (auto) 6.1 10 ^3/uL (1.6-8.6); Neutrophils % (auto) 82.8 % (37.0-80.0); Platelet Count (auto) 229 10^3/uL (140-450); Red Blood Cells 3.98 10^6/uL (4.0-5.20); Red Cell Distribution Width 13.9 % (11.8-14.3); White Blood Cell 7.4 10^3/uL (4.4-10.8)
[2024-07-18 22:15] LABS: Albumin 3.8 g/dL (3.2-4.8); Alkaline Phosphatase 62 U/L (46-116); Anion Gap 8 (5-15); Bilirubin, Total 0.3 mg/dL (0.2-1.0); Blood Urea Nitrogen 19 mg/dL (9-23); Calcium 8.7 mg/dL (8.7-10.4); Carbon Dioxide 27 mmol/L (20-31); Chloride 105 mmol/L (98-107); Sodium 140 mmol/L (136-145); Total Protein 6.3 g/dL (5.7-8.2)
[2024-07-18 22:25] LABS: Alanine Aminotransferase 89 U/L (7-40); Aspartate Aminotransferase 198 U/L (13-40); Glucose 194 mg/dL (74-106); Potassium 3.2 mmol/L (3.5-5.1)
[2024-07-19] MEDS: POTASSIUM CHL 20MEQ/100ML 100 ML IV ONE ×3 (00:57→08:37)
[2024-07-19 04:07] LABS: Basophils # (auto) 0 10 ^3/uL (0-0.2); Basophils % (auto) 0.2 % (0.0-2.0); Eosinophils # (auto) 0 10 ^3/uL (0-0.8); Eosinophils % (auto) 0.1 % (0.0-7.0); Hematocrit 37.5 % (36.0-46.0); Hemoglobin 12.6 g/dL (12.2-16.2); Lymphocytes # (auto) 0.9 10 ^3/uL (0.4-5.4); Lymphocytes % (auto) 12.8 % (10.0-50.0); Mean Corpuscular Hemoglobin 33.2 pg (28.0-32.0); Mean Corpuscular Hgb Conc. 33.7 g/dL (32.0-36.0); Mean Corpuscular Volume 98.4 fL (80.0-100.0); Monocytes # (auto) 0.7 10 ^3/uL (0-1.3); Monocytes % (auto) 10.1 % (0.0-12.0); Neutrophils # (auto) 5.3 10 ^3/uL (1.6-8.6); Neutrophils % (auto) 76.8 % (37.0-80.0); Nucleated Red Blood Cells % 0.1 %; Platelet Count (auto) 208 10^3/uL (140-450); Red Blood Cells 3.81 10^6/uL (4.0-5.20); Red Cell Distribution Width 14.2 % (11.8-14.3)
[2024-07-19 04:30] LABS: Albumin 3.7 g/dL (3.2-4.8); Alkaline Phosphatase 61 U/L (46-116); Anion Gap 9 (5-15); BUN/Creatinine Ratio 13.4 (10.0-20.0); Bilirubin, Total 0.4 mg/dL (0.2-1.0); Blood Urea Nitrogen 17 mg/dL (9-23); Carbon Dioxide 25 mmol/L (20-31); Chloride 99 mmol/L (98-107); Total Protein 6.2 g/dL (5.7-8.2)
[2024-07-19 04:43] LABS: Alanine Aminotransferase 82 U/L (7-40); Aspartate Aminotransferase 173 U/L (13-40); Calcium 8.5 mg/dL (8.7-10.4); Glucose 331 mg/dL (74-106); Potassium 3.1 mmol/L (3.5-5.1); Sodium 133 mmol/L (136-145)
--- NOTE | 2024-07-19 05:33 | DVH ---
CHEST RADIOGRAPH Indication: hypoxia Technique: Single frontal view of the chest was obtained COMPARISON: XY CHEST XRAY 1 VIEW on DOS: 07/17/24 FINDINGS: Lines and Tubes: None Lungs: Low lung volumes. Patchy right lower lobe airspace opacities. Pleura: No effusion. No pneumothorax. Cardiomediastinal contours: Unremarkable Bones: Unremarkable IMPRESSION: Low lung volumes. Patchy right lower lobe airspace opacities.
[2024-07-19 08:00] VITALS: PULSE 99; RESP 17; O2SAT 99
[2024-07-19] MEDS: BENAZEPRIL HCL 10 MG TAB PO SCH (09:57)
[2024-07-19] MEDS: GABAPENTIN 300 MG CAP PO SCH (09:57)
--- NOTE | 2024-07-19 13:25 | DVHPN2 ---
Reviewed: Care Plan, H&P, Labs, Medications Changes from previous H/P or p: No Changes General: Per HPI Eyes: No Pain, No Vision change, No Conjunctivae inflammation, No Eyelid inflammation, No Other, No Redness ENT: No Ear pain, No Ear discharge, No Nose pain, No Nose discharge, No Nose congestion, No Mouth pain, No Mouth swelling, No Throat pain, No Throat swelling, No Other Cardiovascular: No Chest Pain, No Palpitations, No Orthopnea, No Paroxysmal Noc. Dyspnea, No Edema, No Lt Headedness, No Other Respiratory: Cough, Dry; No Shortness of breath, No SOB with excertion, No Wheezing, No Hemoptysis, No Pleuritic Pain, No Sputum, No Other Gastrointestinal: No Nausea, No Vomiting, No Abdominal Pain, No Diarrhea, No Constipation, No Melena, No Hematochezia, No Other Genitourinary: No Dysuria, No Frequency, No Incontinence, No Hematuria, No Retention, No Other Musculoskeletal: No other, No neck pain, No shoulder pain, No arm pain, No back pain, No hand pain, No leg pain, No foot pain Skin: No Rash, No Lesions, No Jaundice, No Bruising, No Other Objective Vitals Vital Signs Date Time Temp Pulse Resp B/P (MAP) Pulse Ox O2 Delivery O2 Flow Rate FiO2 07/19/24 10:00 115 18 132/89 (103) 93 07/19/24 06:03 98.1 07/18/24 19:30 Nasal Cannula* 4 36 Intake/Output Intake and Output 07/19/24 07:00 Intake Total 742.5 ml Output Total 100 ml Balance 642.5 ml Intake IV Total 742.5 ml Output Urine Total 100 ml General Appearance: Alert, Oriented X3, mild distress HEENT: Atraumatic, PERRLA Lungs: Clear to auscultation, Normal air movement, Other (4 liters/minute) Cardiovascular: Normal S1, Normal S2 Abdomen: Normal bowel sounds Musculoskeletal: Normal sensory function, Normal motor function Neuro: Normal gait, Normal speech Skin: Dry, Intact Psych/Mental Status: Mental status NL, Mood NL Medications Current Medications Medications Dose Ordered Sig/Hillary Route Start Time Stop Time Status Last Admin Dose Admin Nitroglycerin 0.4 mg Q5MINP PRN SL 07/18/24 03:30 Morphine Sulfate 2 mg Q30M PRN IV 12/12/24 03:30 Metoprolol Succinate 50 mg DAILY PO 07/18/24 10:00 07/19/24 09:57 50 MG Rivaroxaban 15 mg QPM PO 07/18/24 18:00 07/18/24 17:24 15 MG Ceftriaxone Sodium 50 ml @ 100 mls/hr DAILY@09 IV 07/18/24 09:00 07/19/24 08:37 100 MLS/HR Pantoprazole Sodium 40 mg DAILY IV 07/18/24 10:00 07/19/24 09:56 40 MG Artificial Tears 1 drop Q2HP PRN EACHEYE 07/18/24 06:30 Acetaminophen 650 mg Q4HP PRN PO 07/18/24 07:30 07/19/24 02:59 650 MG Diltiazem HCl 125 ml @ 5 mls/hr Q24H IV 07/18/24 08:45 07/18/24 08:45 5 MLS/HR Doxycycline Hyclate 250 ml @ 125 mls/hr Q12H IV 07/18/24 11:30 07/19/24 12:27 125 MLS/HR Benazepril HCl 10 mg DAILY PO 07/19/24 10:00 07/19/24 09:57 10 MG Ibuprofen 600 mg Q6HP PRN PO 07/18/24 17:15 07/19/24 05:03 600 MG Gabapentin 300 mg TID PO 07/19/24 10:00 07/19/24 09:57 300 MG Laboratory Results Laboratory Tests 07/19/24 03:28 Chemistry Test 07/18/24 21:29 07/19/24 03:28 Albumin 3.8 g/dL (3.2-4.8) 3.7 g/dL (3.2-4.8) Calcium Level 8.7 mg/dL (8.7-10.4) 8.5 mg/dL (8.7-10.4) L Magnesium Level 1.8 mg/dL (1.6-2.6) Total Protein 6.3 g/dL (5.7-8.2) 6.2 g/dL (5.7-8.2) LFT Test 07/18/24 21:29 07/19/24 03:28 Alanine Aminotransferase (ALT) 89 U/L (7-40) H 82 U/L (7-40) H Alkaline Phosphatase 62 U/L (46-116) 61 U/L (46-116) Aspartate Amino Transferase (AST) 198 U/L (13-40) H 173 U/L (13-40) H Total Bilirubin 0.3 mg/dL (0.2-1.0) 0.4 mg/dL (0.2-1.0) Urinalysis Test 07/18/24 04:16 Urine Color Yellow (Yellow) Urine Clarity Turbid (Clear) H Urine pH 5.5 (5.0-9.0) Urine Specific [place] 1.021 (1.001-1.035) Urine Protein 1+ (Negative) H Urine Ketones Negative (Negative) Urine Blood Negative /uL (Negative) Urine Nitrite 2+ (Negative) H Urine Bilirubin Negative (Negative) Urine Urobilinogen Normal mg/dL (Negative) Urine Leukocyte Esterase 3+ /uL (Negative) Urine RBC 4 /hpf (0 - 4) Urine WBC 224 /hpf (0 - 5) Urine Squamous Epithelial Cells Few /hpf (<5) Urine Bacteria Many /hpf (None Seen) H Urine Hyaline Casts Few /lpf (0 - 2) Urine Mucus Few (None Seen) Urine Glucose Normal mg/dL (Normal) Microbiology Microbiology Date/Time Source Procedure Growth Status 07/18/24 06:34 Blood Blood Culture - Preliminary NO GROWTH AFTER 24 HOURS OF INCUBATION. Resulted 07/18/24 04:16 Voided Urine Urine Culture - Preliminary Resulted 07/17/24 22:49 Throat Nose/Throat Culture - Preliminary Resulted Labs and/or images reviewed: Labs reviewed by me, Image(s) reviewed by me Assessment/Plan Assessment/Plan Covering for nurse practitioner Anahi -acute hypoxic respiratory failure -atrial fibrillation with rapid ventricular rate -dyslipidemia -primary hypertension -febrile, rule out sepsis -obesity -mechanical fall -complicated cystitis: Urine cultures mixed, continue Rocephin Continue current medical care Time spent 50 minutes Patient is full code Advanced care planning time 20 mts Plan discussed with: Patient Date of Service: Jul 19, 2024 Billing Provider: YUE SALES MD Common Visit Codes: [id number] CARE 30-74 MIN YUE SALES MD Jul 19, 2024 13:24
--- NOTE | 2024-07-19 16:29 | DVHPN2 ---
Consult Progress Note Objective vital signs Vital Sign Date Time Temp Pulse Resp B/P (MAP) Pulse Ox O2 Delivery O2 Flow Rate FiO2 07/19/24 16:00 115 19 149/66 (93) 94 07/19/24 11:00 98.1 98.1 07/18/24 19:30 Nasal Cannula* 4 36 Total Intake and Output 07/18/24 07/18/24 07/19/24 15:00 23:00 07:00 Intake Total 367.5 ml 25 ml 350 ml Output Total 100 ml Balance 367.5 ml -75 ml 350 ml medications Current Medications Medications Dose Ordered Sig/Hillary Route Start Time Stop Time Status Last Admin Dose Admin Nitroglycerin 0.4 mg Q5MINP PRN SL 07/18/24 03:30 Morphine Sulfate 2 mg Q30M PRN IV 07/18/24 03:30 Metoprolol Succinate 50 mg DAILY PO 07/18/24 10:00 07/19/24 09:57 50 MG Rivaroxaban 15 mg QPM PO 07/18/24 18:00 07/18/24 17:24 15 MG Ceftriaxone Sodium 50 ml @ 100 mls/hr DAILY@09 IV 07/18/24 09:00 07/19/24 08:37 100 MLS/HR Pantoprazole Sodium 40 mg DAILY IV 07/18/24 10:00 07/19/24 09:56 40 MG Artificial Tears 1 drop Q2HP PRN EACHEYE 07/18/24 06:30 Acetaminophen 650 mg Q4HP PRN PO 07/18/24 07:30 07/19/24 02:59 650 MG Diltiazem HCl 125 ml @ 5 mls/hr Q24H IV 07/18/24 08:45 07/18/24 08:45 5 MLS/HR Doxycycline Hyclate 250 ml @ 125 mls/hr Q12H IV 07/18/24 11:30 07/19/24 12:27 125 MLS/HR Benazepril HCl 10 mg DAILY PO 07/19/24 10:00 07/19/24 09:57 10 MG Ibuprofen 600 mg Q6HP PRN PO 07/18/24 17:15 07/19/24 05:03 600 MG Gabapentin 300 mg TID PO 07/19/24 10:00 07/19/24 14:08 300 MG laboratory and microbiology Laboratory Tests 07/19/24 03:28 Test 07/19/24 03:28 Range/Units Serum Glucose 331 H 74-106 mg/dL NARCISA GRAJEDA [facility] Jul 19, 2024 16:29
[2024-07-19] MEDS ORDERED: PRAV20TA3 PO (17:48)
[2024-07-19 20:12] VITALS: O2SAT 98
--- NOTE | 2024-07-19 20:22 | DVHINCON2 ---
Date Seen: Jul 19, 2024 Referring Physician SATINDER Nicholas Reason for Consultation Afib RVR History of Present Illness This is a 69-year-old female patient who presents to the emergency room for confusion and status post mechanical fall. At the time of assessment, the patient is awake alert and oriented x4 able to answer all questions. The patient reports that yesterday she went for a dental procedure in which lidocaine was given. After the procedure she reports feeling lightheaded and weak. She reports that staff assisted her to her car and when she got to her car she sustained a mechanical fall. She denies any loss of consciousness or hitting her head. The patient drove herself home and upon seeing her family, the family convinced the patient to come to the emergency room for further evaluation. Initial twelve lead electrocardiogram reveals atrial fibrillation with rapid ventricular response. Significant past medical history includes atrial fibrillation (on Xarelto), hypertension, hyperlipidemia, sleep apnea, Vann's palsy, and obesity. The patient reports that she follows up with her senior clinical data coordinator Dr. Leiva in the outpatient setting. Past Medical History Past medical history reviewed. No other significant than mentioned above. Past Surgical History Left hip arthroplasty Family History: Cancer G8 FATHER (PROSTATE) G8 BROTHER (PROSTATE) Family history: Diabetes mellitus G8 MOTHER AUNT & UNCLE Family History Family history reviewed. Social History Denies the use of tobacco, alcohol or illicit drugs. Allergies: Coded Allergies: NO KNOWN ALLERGIES (Unverified , 04/25/13) Home Meds Reported Medications Pravastatin Sodium (PRAVACHOL TABLET) 20 Mg Tb, 4 TAB PO QPM, TAB 07/19/24 Rivaroxaban (Xarelto Tablet) 15 Mg Tb, 1 TAB PO DAILY 07/18/24 Gabapentin (Gabapentin) 300 Mg Cap, 1 CAP PO TID 07/18/24 Hydrochlorothiazide (Hydrochlorothiazide) 12.5 Mg Cap, 1 CAP PO DAILY 07/18/24 Metoprolol Tartrate (Metoprolol Tartrate) 100 Mg Tab, 1 TAB PO BID 07/18/24 Amlodipine Besylate (Amlodipine Besylate) 5 Mg Tab, 5 MG PO DAILY, TAB 04/14/15 Home Meds Home medications reviewed. Current Medications Current Medications Medications (Trade) Dose Ordered Sig/Hillary Route PRN Reason Start Time Stop Time Status Last Admin Benazepril HCl (Lotensin Tablet) 10 mg DAILY PO 07/19/24 10:00 07/19/24 09:57 Gabapentin (Neurontin Capsule) 300 mg TID PO 07/19/24 10:00 07/19/24 14:08 Review of Systems Constitutional: Generalized weakness Ears, Nose, & Throat: No symptom reported Eyes: No symptom reported Neurological: ALOC, lightheaded Pulmonary/Respiratory: No symptoms reported Cardiovascular: No symptom reported Gastrointestinal: No symptom reported Genitourinary: No symptom reported Musculoskeletal: No symptom reported Skin: No symptom reported Psychiatric: No symptom reported Endocrine: No symptom reported Hematologic/Lymphatic: No symptom reported Vital Signs Vital Signs Date Time Temp Pulse Resp B/P (MAP) Pulse Ox O2 Delivery O2 Flow Rate FiO2 07/19/24 20:12 98 Room Air 0.0 07/19/24 20:12 21 07/19/24 18:00 116 19 147/65 (92) 07/19/24 11:00 98.1 98.1 Physical Exam General Appearance: Cooperative. Well-developed. Well-nourished. No acute distress. Pulmonary/Respiratory: Clear, bilateral breaths sounds. Cardiovascular/Chest: Irregular rate and rhythm. Peripheral Pulses: 2+ Radial (R). 2+ Radial (L). 2+ Pedal (R). 2+ Pedal (L) Abdominal Exam: Normal bowel sounds. Ankle Exam: Negative ankle edema Lower extremities: Negative lower extremity edema Neuro/Mental Status: A/OX4, coherent. Thoughts/Psych: Normal thought pattern. Appropriate mood and affect. Good judgment and insight. Appearance: No acute distress. Skin Exam: Normal inspection. Normal color. Warm and dry. Labs/Diagnostic Data Labs Test 07/19/24 03:28 07/18/24 21:29 07/18/24 14:02 07/18/24 09:00 Range/Units White Blood Count 7.0 4.4-10.8 10^3/uL Red Blood Count 3.81 L 4.0-5.20 10^6/uL Hemoglobin 12.6 12.2-16.2 g/dL Hematocrit 37.5 36.0-46.0 % Mean Corpuscular Volume 98.4 80.0-100.0 fL Mean Corpuscular Hemoglobin 33.2 H 28.0-32.0 pg Mean Corpuscular Hemoglobin Concent 33.7 32.0-36.0 g/dL Red Cell Distribution Width 14.2 11.8-14.3 % Platelet Count 208 140-450 10^3/uL Mean Platelet Volume 7.4 6.9-10.8 fL Neutrophils (%) (Auto) 76.8 37.0-80.0 % Lymphocytes (%) (Auto) 12.8 10.0-50.0 % Monocytes (%) (Auto) 10.1 0.0-12.0 % Eosinophils (%) (Auto) 0.1 0.0-7.0 % Basophils (%) (Auto) 0.2 0.0-2.0 % Neutrophils # (Auto) 5.3 1.6-8.6 10 ^3/uL Lymphocytes # (Auto) 0.9 0.4-5.4 10 ^3/uL Monocytes # (Auto) 0.7 0-1.3 10 ^3/uL Eosinophils # (Auto) 0 0-0.8 10 ^3/uL Basophils # (Auto) 0 0-0.2 10 ^3/uL Nucleated Red Blood Cells 0.1 % Sodium Level 133 #L 136-145 mmol/L Potassium Level 3.1 L 3.5-5.1 mmol/L Chloride Level 99 98-107 mmol/L Carbon Dioxide Level 25 20-31 mmol/L Anion Gap 9 5-15 Blood Urea Nitrogen 17 9-23 mg/dL Creatinine 1.27 H 0.550-1.02 mg/dL Glomerular Filtration Rate Calc 45 >90 mL/min BUN/Creatinine Ratio 13.4 10.0-20.0 Serum Glucose 331 H 74-106 mg/dL Calcium Level 8.5 L 8.7-10.4 mg/dL Total Bilirubin 0.4 0.2-1.0 mg/dL Aspartate Amino Transferase (AST) 173 H 13-40 U/L Alanine Aminotransferase (ALT) 82 H 7-40 U/L Alkaline Phosphatase 61 46-116 U/L Total Protein 6.2 5.7-8.2 g/dL Albumin 3.7 3.2-4.8 g/dL Lactic Acid Level 1.0 0.4-2.0 mmol/L Magnesium Level 1.8 1.6-2.6 mg/dL Creatine Kinase 630 H 34-145 U/L Troponin I High Sensitivity 14 </=34 ng/L Test 07/18/24 06:41 07/18/24 06:34 07/18/24 04:20 07/18/24 04:16 Range/Units Blood Gas Specimen Type Venous Blood Gas Sample Site Vbg - n/a Blood Gas Patient Temperature 37.0 Arterial Blood Date Drawn [id number] Adams Test N/a Venous Blood pH 7.426 7.320-7.430 Venous Blood pCO2 at Patient Temp 28.5 L 38.0-54.0 mmHg Venous Blood pO2 at Patient Temp < 36.5 23.0-48.0 mmHg Venous Blood HCO3 18.3 L 22.0-29.0 mmol/L Venous Blood Base Excess -4.5 L -2.0-3.0 mmol/L Blood Gas Modality Room air FiO2 % 21.0 D-Dimer, Quantitative 0.36 0.0-0.49 mg/L FEU Ammonia < 10 L 11-32 umol/L Vitamin B12 Level 1624 H 211-911 pg/mL Thyroid Stimulating Hormone (TSH) 0.36 L 0.55-4.78 uIU/mL Free Thyroxine (T4) Calculated 1.06 0.89-1.76 ng/dL Free Triiodothyronine (T3) pg/mL 2.72 2.3-4.2 pg/mL Plasma/Serum Blood Alcohol < 3.0 <10 mg/dL Urine Color Yellow Yellow Urine Clarity Turbid H Clear Urine pH 5.5 5.0-9.0 Urine Specific [place] 1.021 1.001-1.035 Urine Protein 1+ H Negative Urine Ketones Negative Negative Urine Blood Negative Negative /uL Urine Nitrite 2+ H Negative Urine Bilirubin Negative Negative Urine Urobilinogen Normal Negative mg/dL Urine Leukocyte Esterase 3+ Negative /uL Urine RBC 4 0 - 4 /hpf Urine WBC 224 0 - 5 /hpf Urine Squamous Epithelial Cells Few <5 /hpf Urine Bacteria Many H None Seen /hpf Urine Hyaline Casts Few 0 - 2 /lpf Urine Mucus Few None Seen Urine Glucose Normal Normal mg/dL Urine Opiates Screen Neg NEGATIVE Urine Fentanyl Screen Neg NEGATIVE Urine Barbiturates Screen Neg NEGATIVE Urine Phencyclidine Screen Neg NEGATIVE Urine Amphetamines Screen Neg NEGATIVE Urine Benzodiazepines Screen Neg NEGATIVE Urine Cocaine Screen Neg NEGATIVE Urine Cannabinoids Screen Neg NEGATIVE Test 07/17/24 22:49 07/17/24 20:58 07/17/24 20:33 Range/Units Group A Streptococcus Rapid Negative Influenza Type A Antigen Negative Negative Influenza Type B Antigen Negative Negative SARS-CoV-2 Antigen (Rapid) Negative NEGATIVE Prothrombin Time 13.3 H 9.3-11.8 sec Prothrombin Time INR 1.28 H 0.9-1.15 C-Reactive Protein High Sensitivity 0.92 <1.0 mg/dL B-Type Natriuretic Peptide 245.32 0-100 pg/mL Microbiology Date/Time Source Procedure Growth Status 07/18/24 06:34 Blood Blood Culture - Preliminary NO GROWTH AFTER 24 HOURS OF INCUBATION. Resulted 07/18/24 04:16 Voided Urine Urine Culture - Preliminary Resulted 07/17/24 22:49 Throat Nose/Throat Culture - Preliminary Resulted Assessment Atrial fibrillation with rapid ventricular response (on Xarelto) Hypertension Hyperlipidemia Acute cystitis Obstructive sleep apnea History of Vann's palsy Obesity Plan/Recommendation We will continue with the following plan/recommendations (Dr. Allen): * Echocardiogram reveals EF 55% * [id number] VASc score: 3 points, HAS-BLED score: 2 points * Continue home NOAC therapy, Xarelto * Rate control with beta-azam, up titrate as tolerated * DC Cardizem drip * Monitor and replete electrolytes as needed, keep potassium greater than four and magnesium greater than two * Cardiac surveillance * Antibiotics per primary care team Case discussed with . Thank you for allowing us to care for this patient. Please call with any questions or concerns. Critical care time spent: 39 minutes This medical document was created using an electronic medical record system with voice recognition software and computerized dictation system. Although this document has been carefully reviewed, there might still be some phonetic and typographical errors. Occasional wrong-word or ``sound-alike substitutions may have occurred due to the inherent limitations of voice recognition software. These areas are purely typographical due to imperfections of the software progr ams and do not reflect any compromise in the patient's medical care. Please read the chart carefully and recognize, using context, where these substitutions have occurred. Plan discussed with: Patient Date of Service: Jul 19, 2024 Billing Provider: NARCISA GRAJEDA Cardiology Common Codes: [id number] INP/OBS CARE (High) Cardiology Consultation Codes: [id number] CONSULT <45MIN NARCISA GRAJEDA Jul 19, 2024 20:22
[2024-07-19 21:00] VITALS: BP 150/89; PULSE 132; RESP 20; TEMP 99.7; O2SAT 96
[2024-07-20] MEDS: METOPROLOL SUCCINATE XL 50 MG TAB PO ONE (00:53)
[2024-07-20 01:00] VITALS: BP 148/86; PULSE 100; RESP 20; TEMP 98.9; O2SAT 96
[2024-07-20 05:00] VITALS: BP 150/88; PULSE 108; RESP 18; TEMP 98.6; O2SAT 98
[2024-07-20 06:15] LABS: Basophils # (auto) 0.1 10 ^3/uL (0-0.2); Eosinophils # (auto) 0.2 10 ^3/uL (0-0.8); Eosinophils % (auto) 3.1 % (0.0-7.0); Hematocrit 26.5 % (36.0-46.0); Hemoglobin 8.8 g/dL (12.2-16.2); Mean Corpuscular Hemoglobin 31.6 pg (28.0-32.0); Mean Corpuscular Hgb Conc. 33.2 g/dL (32.0-36.0); Mean Corpuscular Volume 95.2 fL (80.0-100.0); Monocytes # (auto) 0.5 10 ^3/uL (0-1.3); Monocytes % (auto) 8.1 % (0.0-12.0); Neutrophils # (auto) 4.3 10 ^3/uL (1.6-8.6); Neutrophils % (auto) 70.8 % (37.0-80.0); Nucleated Red Blood Cells % 0.3 %; Platelet Count (auto) 179 10^3/uL (140-450); Red Blood Cells 2.79 10^6/uL (4.0-5.20); White Blood Cell 6.1 10^3/uL (4.4-10.8)
[2024-07-20 06:30] LABS: Anion Gap 12 (5-15); Carbon Dioxide 25 mmol/L (20-31); Chloride 105 mmol/L (98-107); Sodium 142 mmol/L (136-145)
[2024-07-20 06:36] LABS: BUN/Creatinine Ratio 19.9 (10.0-20.0); Blood Urea Nitrogen 53 mg/dL (9-23); Calcium 6.6 mg/dL (8.7-10.4); Glucose 60 mg/dL (74-106); Potassium 3.1 mmol/L (3.5-5.1)
[2024-07-20 08:00] VITALS: PULSE 110
[2024-07-20] MEDS ORDERED: LEVO500T91 PO (08:31)
--- NOTE | 2024-07-20 08:32 | DVHPN2 ---
Reviewed: Care Plan, H&P, Labs, Medications Changes from previous H/P or p: No Changes General: Per HPI Eyes: No Pain, No Vision change, No Conjunctivae inflammation, No Eyelid inflammation, No Other, No Redness ENT: No Ear pain, No Ear discharge, No Nose pain, No Nose discharge, No Nose congestion, No Mouth pain, No Mouth swelling, No Throat pain, No Throat swelling, No Other Cardiovascular: No Chest Pain, No Palpitations, No Orthopnea, No Paroxysmal Noc. Dyspnea, No Edema, No Lt Headedness, No Other Respiratory: Cough, Dry; No Shortness of breath, No SOB with excertion, No Wheezing, No Hemoptysis, No Pleuritic Pain, No Sputum, No Other Gastrointestinal: No Nausea, No Vomiting, No Abdominal Pain, No Diarrhea, No Constipation, No Melena, No Hematochezia, No Other Genitourinary: No Dysuria, No Frequency, No Incontinence, No Hematuria, No Retention, No Other Musculoskeletal: No other, No neck pain, No shoulder pain, No arm pain, No back pain, No hand pain, No leg pain, No foot pain Skin: No Rash, No Lesions, No Jaundice, No Bruising, No Other Objective Vitals Vital Signs Date Time Temp Pulse Resp B/P (MAP) Pulse Ox O2 Delivery O2 Flow Rate FiO2 07/20/24 05:00 98.6 108 18 150/88 (108) 98 98.6 07/19/24 20:12 Room Air 0.0 07/19/24 20:12 21 Intake/Output Intake and Output 07/20/24 07:00 Intake Total 755 ml Output Total 1900 ml Balance -1145 ml Intake IV Total 755 ml Output Urine Total 1900 ml General Appearance: Alert, Oriented X3, mild distress HEENT: Atraumatic, PERRLA Lungs: Clear to auscultation, Normal air movement, Other (4 liters/minute) Cardiovascular: Normal S1, Normal S2 Abdomen: Normal bowel sounds Musculoskeletal: Normal sensory function, Normal motor function Neuro: Normal gait, Normal speech Skin: Dry, Intact Psych/Mental Status: Mental status NL, Mood NL Medications Current Medications Medications Dose Ordered Sig/Hillary Route Start Time Stop Time Status Last Admin Dose Admin Nitroglycerin 0.4 mg Q5MINP PRN SL 07/18/24 03:30 Morphine Sulfate 2 mg Q30M PRN IV 07/18/24 03:30 Metoprolol Succinate 50 mg DAILY PO 07/18/24 10:00 07/19/24 09:57 50 MG Rivaroxaban 15 mg QPM PO 07/18/24 18:00 07/19/24 18:10 15 MG Ceftriaxone Sodium 50 ml @ 100 mls/hr DAILY@09 IV 07/18/24 09:00 07/19/24 08:37 100 MLS/HR Pantoprazole Sodium 40 mg DAILY IV 07/18/24 10:00 07/19/24 09:56 40 MG Artificial Tears 1 drop Q2HP PRN EACHEYE 07/18/24 06:30 Acetaminophen 650 mg Q4HP PRN PO 07/18/24 07:30 07/19/24 02:59 650 MG Doxycycline Hyclate 250 ml @ 125 mls/hr Q12H IV 07/18/24 11:30 07/19/24 23:21 125 MLS/HR Benazepril HCl 10 mg DAILY PO 07/19/24 10:00 07/19/24 09:57 10 MG Ibuprofen 600 mg Q6HP PRN PO 07/18/24 17:15 07/19/24 05:03 600 MG Gabapentin 300 mg TID PO 07/19/24 10:00 07/20/24 05:55 300 MG Laboratory Results Laboratory Tests 07/20/24 04:55 Chemistry Test 07/20/24 04:55 Calcium Level 6.6 mg/dL (8.7-10.4) L Magnesium Level 1.0 mg/dL (1.6-2.6) L Urinalysis Test 07/18/24 04:16 Urine Color Yellow (Yellow) Urine Clarity Turbid (Clear) H Urine pH 5.5 (5.0-9.0) Urine Specific [place] 1.021 (1.001-1.035) Urine Protein 1+ (Negative) H Urine Ketones Negative (Negative) Urine Blood Negative /uL (Negative) Urine Nitrite 2+ (Negative) H Urine Bilirubin Negative (Negative) Urine Urobilinogen Normal mg/dL (Negative) Urine Leukocyte Esterase 3+ /uL (Negative) Urine RBC 4 /hpf (0 - 4) Urine WBC 224 /hpf (0 - 5) Urine Squamous Epithelial Cells Few /hpf (<5) Urine Bacteria Many /hpf (None Seen) H Urine Hyaline Casts Few /lpf (0 - 2) Urine Mucus Few (None Seen) Urine Glucose Normal mg/dL (Normal) Microbiology Microbiology Date/Time Source Procedure Growth Status 07/18/24 06:34 Blood Blood Culture - Preliminary NO GROWTH AFTER 48 HOURS OF INCUBATION. Resulted 07/18/24 04:16 Voided Urine Urine Culture - Preliminary Resulted 07/17/24 22:49 Throat Nose/Throat Culture - Preliminary Resulted Labs and/or images reviewed: Labs reviewed by me, Image(s) reviewed by me Assessment/Plan Assessment/Plan Covering for nurse practitioner Anahi -acute hypoxic respiratory failure -atrial fibrillation with rapid ventricular rate on Xarelto -dyslipidemia -primary hypertension -febrile, rule out sepsis -obesity History of obstructive sleep apnea History of Vann's palsy -mechanical fall -complicated cystitis: Urine cultures mixed, blood cultures negative, treated with Rocephin Plan discussed with: Patient My Orders Orders - YUE SALES MD Procedure Category Date Status Time Transfer Orders XFER 07/19/24 Transmitted 14:58 Date of Service: Jul 20, 2024 Billing Provider: YUE SALES MD Common Visit Codes: [id number] INP/OBS CARE(HIGH) YUE SALES MD Jul 20, 2024 08:32
--- NOTE | 2024-07-20 08:36 | DVHDS2 ---
Discharge Summary Date of Admission Jul 18, 2024 at 03:29 Date of Discharge: Jul 20, 2024 Admitting Diagnosis Shortness of breaths and generalized weakness Wounds: None Labs/Diagnostic Data: Laboratory Results Test 07/20/24 04:55 07/19/24 03:28 07/18/24 21:29 07/18/24 14:02 White Blood Count 6.1 10^3/uL (4.4-10.8) Red Blood Count 2.79 10^6/uL (4.0-5.20) Hemoglobin 8.8 g/dL (12.2-16.2) Hematocrit 26.5 % (36.0-46.0) Mean Corpuscular Volume 95.2 fL (80.0-100.0) Mean Corpuscular Hemoglobin 31.6 pg (28.0-32.0) Mean Corpuscular Hemoglobin Concent 33.2 g/dL (32.0-36.0) Red Cell Distribution Width 15.0 % (11.8-14.3) Platelet Count 179 10^3/uL (140-450) Mean Platelet Volume 7.8 fL (6.9-10.8) Neutrophils (%) (Auto) 70.8 % (37.0-80.0) Lymphocytes (%) (Auto) 17.0 % (10.0-50.0) Monocytes (%) (Auto) 8.1 % (0.0-12.0) Eosinophils (%) (Auto) 3.1 % (0.0-7.0) Basophils (%) (Auto) 1.0 % (0.0-2.0) Neutrophils # (Auto) 4.3 10 ^3/uL (1.6-8.6) Lymphocytes # (Auto) 1.0 10 ^3/uL (0.4-5.4) Monocytes # (Auto) 0.5 10 ^3/uL (0-1.3) Eosinophils # (Auto) 0.2 10 ^3/uL (0-0.8) Basophils # (Auto) 0.1 10 ^3/uL (0-0.2) Nucleated Red Blood Cells 0.3 % Sodium Level 142 mmol/L (136-145) Potassium Level 3.1 mmol/L (3.5-5.1) Chloride Level 105 mmol/L (98-107) Carbon Dioxide Level 25 mmol/L (20-31) Anion Gap 12 (5-15) Blood Urea Nitrogen 53 mg/dL (9-23) Creatinine 2.67 mg/dL (0.550-1.02) Glomerular Filtration Rate Calc 19 mL/min (>90) BUN/Creatinine Ratio 19.9 (10.0-20.0) Serum Glucose 60 mg/dL (74-106) Calcium Level 6.6 mg/dL (8.7-10.4) Magnesium Level 1.0 mg/dL (1.6-2.6) Total Bilirubin 0.4 mg/dL (0.2-1.0) Aspartate Amino Transferase (AST) 173 U/L (13-40) Alanine Aminotransferase (ALT) 82 U/L (7-40) Alkaline Phosphatase 61 U/L (46-116) Total Protein 6.2 g/dL (5.7-8.2) Albumin 3.7 g/dL (3.2-4.8) Lactic Acid Level 1.0 mmol/L (0.4-2.0) Creatine Kinase 630 U/L (34-145) Test 07/18/24 09:00 07/18/24 06:41 07/18/24 06:34 07/18/24 04:20 Troponin I High Sensitivity 14 ng/L (</=34) Blood Gas Specimen Type Venous Blood Gas Sample Site Vbg - n/a Blood Gas Patient Temperature 37.0 Arterial Blood Date Drawn Adams Test N/a Venous Blood pH 7.426 (7.320-7.430) Venous Blood pCO2 at Patient Temp 28.5 mmHg (38.0-54.0) Venous Blood pO2 at Patient Temp < 36.5 mmHg (23.0-48.0) Venous Blood HCO3 18.3 mmol/L (22.0-29.0) Venous Blood Base Excess -4.5 mmol/L (-2.0-3.0) Blood Gas Modality Room air FiO2 % 21.0 D-Dimer, Quantitative 0.36 mg/L FEU (0.0-0.49) Ammonia < 10 umol/L (11-32) Vitamin B12 Level 1624 pg/mL (211-911) Thyroid Stimulating Hormone (TSH) 0.36 uIU/mL (0.55-4.78) Free Thyroxine (T4) Calculated 1.06 ng/dL (0.89-1.76) Free Triiodothyronine (T3) pg/mL 2.72 pg/mL (2.3-4.2) Plasma/Serum Blood Alcohol < 3.0 mg/dL (<10) Test 07/18/24 04:16 07/17/24 22:49 07/17/24 20:58 07/17/24 20:33 Urine Color Yellow (Yellow) Urine Clarity Turbid (Clear) Urine pH 5.5 (5.0-9.0) Urine Specific [place] 1.021 (1.001-1.035) Urine Protein 1+ (Negative) Urine Ketones Negative (Negative) Urine Blood Negative /uL (Negative) Urine Nitrite 2+ (Negative) Urine Bilirubin Negative (Negative) Urine Urobilinogen Normal mg/dL (Negative) Urine Leukocyte Esterase 3+ /uL (Negative) Urine RBC 4 /hpf (0 - 4) Urine WBC 224 /hpf (0 - 5) Urine Squamous Epithelial Cells Few /hpf (<5) Urine Bacteria Many /hpf (None Seen) Urine Hyaline Casts Few /lpf (0 - 2) Urine Mucus Few (None Seen) Urine Glucose Normal mg/dL (Normal) Urine Opiates Screen Neg (NEGATIVE) Urine Fentanyl Screen Neg (NEGATIVE) Urine Barbiturates Screen Neg (NEGATIVE) Urine Phencyclidine Screen Neg (NEGATIVE) Urine Amphetamines Screen Neg (NEGATIVE) Urine Benzodiazepines Screen Neg (NEGATIVE) Urine Cocaine Screen Neg (NEGATIVE) Urine Cannabinoids Screen Neg (NEGATIVE) Group A Streptococcus Rapid Negative Influenza Type A Antigen Negative (Negative) Influenza Type B Antigen Negative (Negative) SARS-CoV-2 Antigen (Rapid) Negative (NEGATIVE) Prothrombin Time 13.3 sec (9.3-11.8) Prothrombin Time INR 1.28 (0.9-1.15) C-Reactive Protein High Sensitivity 0.92 mg/dL (<1.0) B-Type Natriuretic Peptide 245.32 pg/mL (0-100) Other Laboratory Tests 07/20/24 04:55 Brief Hx & Hospital Course: Patient was originally seen by nurse practitioner Hai Pablo 69-year-old female with a history of hypertension hypercholesterolemia obesity obstructive sleep apnea Vann's palsy AFib with RVR on Xarelto came in for shortness of breaths and generalized weakness. She was given oxygen for acute hypoxic respiratory failure. Urine showed UTI with complicated cystitis blood cultures negative urine cultures mixed treated with Rocephin . seen by monitor worker advised to continue home medications no further cardiac workup At the time of discharge patient is afebrile stable vital signs on room air. Discharged home on Levaquin for possible pneumonia and UTI. Consults/Reason for consult Cardiology Operations or Procedures None Condition at Discharge: Fair Final Diagnosis/Problems List -acute hypoxic respiratory failure -atrial fibrillation with rapid ventricular rate on Xarelto -dyslipidemia -primary hypertension -febrile, rule out sepsis -obesity History of obstructive sleep apnea History of Vann's palsy -mechanical fall -complicated cystitis: Urine cultures mixed, blood cultures negative, treated with Rocephin Discharge Disposition: Home Discharge Instruct/Medications Diet: Cardiac 2g Na,low cholest Activity: Light activity Follow Up/Referral: Follow up with your primary Dr in one week Resume all previous home medication Medications: Levaquin 500 mg p.o. daily 7. 39 (Time taken for discharge summary 39 minutes) Discharge Statement: "Patient was advised to return to the ER or call 911 if any headaches, dizziness, shortness of breath, chest pain, abdominal pain, bleeding, fevers, or worsening of medical condition. Patient was counseled about treatment plan, medications, possible side effects, patientverbalized understanding. All questions were answered to the best of my ability. This discharge took greater then 30 minutes in planning, reviewing documentation, counseling the patient, and discussing with other team members." ASSESSMENT ASSESSMENT Hospital Course Improved Assessment -acute hypoxic respiratory failure -atrial fibrillation with rapid ventricular rate on Xarelto -dyslipidemia -primary hypertension -febrile, rule out sepsis -obesity History of obstructive sleep apnea History of Vann's palsy -mechanical fall -complicated cystitis: Urine cultures mixed, blood cultures negative, treated with Rocephin Date of Service: Jul 20, 2024 Billing Provider: YUE SALES MD Common Visit Codes: [id number]/OBS DISCH DAY >30min YUE SALES MD Jul 20, 2024 08:36
[2024-07-20 09:00] VITALS: BP 139/91; PULSE 108; RESP 18; TEMP 98.8; O2SAT 95
[2024-07-20 11:05] VITALS: O2SAT 94
[2024-07-20 13:00] VITALS: BP 116/61; PULSE 97; RESP 20; TEMP 99.3; O2SAT 93
[2024-07-21] MEDS ORDERED: METOPROLOL SUCCINATE XL 50 MG TAB PO SCH (10:00)
== END 2024-07-20 15:50 | disposition home or self-care (01) | DRG 871 ==
LOC: ER 19:23 → TELE 07-18 03:29 → TELE-CENTR 07-19 18:25
PROVIDERS: ADMIT Internal Medicine; ATTEND Family Medicine
DX: A41.9 Sepsis, unspecified organism (principal); J18.9 Pneumonia, unspecified organism; J96.01 Acute respiratory failure with hypoxia; N30.00 Acute cystitis without hematuria; N17.9 Acute kidney failure, unspecified; Z20.822 Contact with and (suspected) exposure to COVID-19; E66.9 Obesity, unspecified; E50.7 Other ocular manifestations of vitamin A deficiency; E78.00 Pure hypercholesterolemia, unspecified; I50.9 Heart failure, unspecified; I11.0 Hypertensive heart disease with heart failure; G51.0 Bell's palsy; Z96.642 Presence of left artificial hip joint; G47.33 Obstructive sleep apnea (adult) (pediatric); I48.91 Unspecified atrial fibrillation; E78.5 Hyperlipidemia, unspecified; Z79.899 Other long term (current) drug therapy; Z68.30 Body mass index [BMI] 30.0-30.9, adult; Z79.01 Long term (current) use of anticoagulants; Z83.3 Family history of diabetes mellitus
CPT/HCPCS: 36415; 36600; 70450; 71045; 80048; 80053; 80307; 80320; 81001; 82140; 82550; 82607; 82805; 83605; 83735; 83880; 84439; 84443; 84481; 84484; 85025; 85379; 85610; 86141; 87040; 87070; 87086; 87426; 87804; 87880; 93005; 93306; 93886; 94640; 96361; 96374; G0378; J2470; J3480; J3490